=== PATIENT | male | born 1980 | race Caucasian/White ===

== ENCOUNTER 2016-08-28 15:20 | Emergency (ER) | payer BC ==
[~2016-08-28] VITALS: Ht 170.2 cm; Wt 80.0 kg
[~2016-08-28 15:20] MED LIST: IBUP-1542 PO; LIDO700A6 TD; NO MEDS
[2016-08-28 15:39] VITALS: Ht 170.2 cm; Wt 80.0 kg
--- NOTE | 2016-08-28 15:44 | ERA ---
ER Documentation Chief Complaint Date/Time DATE: 08/28/16 TIME: 15:43 Chief Complaint Abdominal pain HPI The patient is a 36-year-old male, presenting to the ER because of epigastric abdominal pain that began about 2:45 PM while he was driving. He thought it might be from hunger pain. He denies similar pain previously, the pain is 10/10 , no aggravating or relieving factor. He denies fever, chills, neck pain, chest pain, dyspnea, vomiting, diarrhea, constipation, dysuria. He does not smoke, drinks socially Past medical history: Gastritis, GERD Past surgical history: None ROS All systems reviewed and are negative except as per history of present illness. Medications Home Meds Active Scripts Hydrocodone/Acetaminophen ([place] 10-325 Tablet) 1 Each Tablet, 1 TAB PO Q6H Y for PAIN, #15 TAB Prov:FERNANDO STANLEY MD 08/28/16 Hydrocodone/Acetaminophen ([place] 10-325 Tablet) 1 Each Tablet, 1 TAB PO Q6H Y for PAIN, #7 TAB Prov:FERNANDO STANLEY MD 08/28/16 Discontinued Reported Medications [No Meds] No Conflict Check 06/21/14 Discontinued Scripts Lidocaine 5%* (Lidoderm 5%*) 5% - Patch Adh..patch, 1 PATCH TD DAILY, #15 PATCH Prov:CUAUHTEMOC ELAM NP 04/15/15 Ibuprofen* (Motrin*) 600 Mg Tab, 600 MG PO Q6H Y for PAIN AND OR ELEVATED TEMP, #30 Prov:CUAUHTEMOC ELAM NP 04/15/15 Allergies Allergies: Coded Allergies: No Known Allergy (Unverified , 08/28/16) PMhx/Soc Hx Alcohol Use: No Hx Substance Use: No Hx Tobacco Use: No Physical Exam Vitals Vital Signs Date Time Temp Pulse Resp B/P Pulse Ox O2 Delivery O2 Flow Rate FiO2 08/28/16 17:37 97.4 71 16 132/66 98 Room Air 08/28/16 15:39 36.6 104 22 148/82 98 Physical Exam Const: No acute distress. Head: Atraumatic. Eyes: Normal Conjunctiva. ENT: Normal External Ears, Nose and Mouth. Neck: Full range of motion. No meningismus. Resp: Clear to auscultation bilaterally. Cardio: Regular rate and rhythm, no murmurs. Abd: Soft, non distended, normal bowel sounds, mild epigastric tenderness. No right lower quadrant, right upper quadrant, CVA, no rigidity, rebound, tenderness Skin: No petechiae or rashes. Back: No midline or flank tenderness. Ext: No cyanosis, or edema. Neur: Awake and alert. No focal deficit Psych: Normal Mood and Affect. Result Diagram: 08/28/16 1550 08/28/16 1550 Results 24 hrs Laboratory Tests Test 08/28/16 15:50 08/28/16 16:57 Alanine Aminotransferase (ALT/SGPT) 57IU/L Albumin 4.5g/dl Albumin/Globulin Ratio 1.25 Alkaline Phosphatase 86IU/L Anion Gap 19 Aspartate Amino Transf (AST/SGOT) 58IU/L Basophils # Pending Basophils % Pending Blood Urea Nitrogen 14mg/dl Calcium Level 9.4mg/dl Carbon Dioxide Level 27mmol/L Chloride Level 101mmol/L Creatinine 0.87mg/dl Direct Bilirubin 0.00mg/dl Eosinophils # Pending Eosinophils % Pending Globulin 3.60g/dl Glucose Level 97mg/dl Hematocrit 47.7% Hemoglobin 16.2g/dl Indirect Bilirubin 0.3mg/dl Lipase 152U/L Lymphocytes # Pending Lymphocytes % Pending Mean Corpuscular Hemoglobin 30.8pg Mean Corpuscular Hemoglobin Concent 33.9g/dl Mean Corpuscular Volume 90.9fl Mean Platelet Volume 10.1fl Monocytes # Pending Monocytes % Pending Neutrophils # Pending Neutrophils % Pending Nucleated Red Blood Cells # Pending Nucleated Red Blood Cells % Pending Platelet Count 91595^3/UL Potassium Level 3.3mmol/L Red Blood Count 5.2510^6/ul Red Cell Distribution Width 12.5% Sodium Level 144mmol/L Total Bilirubin 0.3mg/dl Total Protein 8.1g/dl White Blood Count 9.610^3/ul Bedside Urine Blood Negative Bedside Urine Glucose (UA) Negative Bedside Urine Ketones (LAB) Negative Bedside Urine Leukocyte Esterase (L Negative Bedside Urine Nitrite (LAB) Negative Bedside Urine Protein (LAB) Trace Bedside Urine pH (LAB) 7.5 Current Medications Medications (Trade) Dose Ordered Sig/Sissy Route PRN Reason Start Time Stop Time Status Last Admin Dose Admin Morphine Sulfate (morphine) 4 mg ONCE STAT IV 08/28/16 16:12 08/28/16 16:15 DC 08/28/16 16:52 Ondansetron HCl (Zofran Inj) 4 mg ONCE STAT IV 08/28/16 16:12 08/28/16 16:15 DC 08/28/16 16:20 Pantoprazole (Protonix Iv) 40 mg ONCE ONCE IV 08/28/16 16:30 08/28/16 16:31 DC 08/28/16 16:20 Potassium Chloride (Klor-Con 20) 20 meq ONCE STAT PO 08/28/16 16:49 08/28/16 16:51 DC 08/28/16 17:08 Procedures/MDM EKG: Read by emergency physician Rate/Rhythm: Sinus tachycardia 103 beats per min QRS, ST, T-waves: No ST elevation, no T wave inversion Impression: Abnormal EKG MEDICAL MAKING DECISION: The patient is a 36-year-old male, presenting to the ER because of acute biliary colic, acute hypokalemia. He was treated with morphine 4 mg IV for pain, Zofran 4 mg IV for nausea, Protonix 40 mg IV and potassium 20 mEq p.o. for low potassium with good response. The differential diagnoses considered include but are not limited to cholelithiasis, cholecystitis, cystitis, pancreatitis, hepatitis, gastritis, peptic ulcer disease, gastric ulcer, appendicitis, diverticulitis, cholangitis, choledocholithiasis, partial small bowel obstruction. Departure Diagnosis: Primary Impression: Biliary colic Additional Impression: Hypokalemia Condition: Good Comments He was discharged with [place] and referral to a general surgeon Dr. Epps in 1- 2 days, sooner if needed and return to concern The patient's blood pressure was elevated (>120/80) but appears stable without evidence of hypertension emergency or urgency. The patient was counseled about the risks of hypertension and urged to pursue outpatient monitoring and therapy within a week with their primary care physician. FERNANDO STANLEY MD Aug 28, 2016 15:44
[2016-08-28 16:04] LABS: BASOPHIL # 0.1 10^3/ul (0.0-0.1); BASOPHILS % 0.7 % (0.0-2.0); EOSINOPHILS # 0.1 10^3/ul (0.0-0.5); HEMATOCRIT 47.7 % (42.0-52.0); HEMOGLOBIN 16.2 g/dl (14.0-18.0); LYMPHOCYTES # 5.3 10^3/ul (0.8-2.9); LYMPHOCYTES % 54.9 % (15.0-51.0); MEAN CORPUSCULAR HEMOGLOBIN 30.8 pg (29.0-33.0); MEAN CORPUSCULAR HGB CONC 33.9 g/dl (32.0-37.0); MEAN CORPUSCULAR VOLUME 90.9 fl (82.0-101.0); MEAN PLATELET VOLUME 10.1 fl (7.4-10.4); MONOCYTE # 0.6 10^3/ul (0.3-0.9); MONOCYTES % 5.8 % (0.0-11.0); NEUTROPHIL # 3.6 10^3/ul (1.6-7.5); NEUTROPHILS % 37.6 % (39.0-77.0); PLATELET COUNT 215 10^3/UL (140-440); RED BLOOD COUNT 5.25 10^6/ul (4.70-6.10); RED CELL DISTRIBUTION WIDTH 12.5 % (11.5-14.5); UNCORRECTED WBC 9.6 10^3/ul (4.8-10.8); WHITE BLOOD COUNT 9.6 10^3/ul (4.8-10.8)
[2016-08-28 16:09] LABS: CONDITION 1; LH ANALYZER COMMENTS 1
[2016-08-28] MEDS ORDERED: morphine 4 MG/ML VIAL IV STA (16:12)
[2016-08-28] MEDS ORDERED: ONDANSETRON 4 MG INJ IV STA (16:12)
[2016-08-28 16:13] LABS: ALBUMIN 4.5 g/dl (3.3-4.9)
[2016-08-28 16:14] LABS: POTASSIUM 3.3 mmol/L (3.5-5.1)
[2016-08-28 16:16] LABS: ALBUMIN/GLOBULIN RATIO 1.25; BILIRUBIN,INDIRECT 0.3 mg/dl (0-1.1); BILIRUBIN,TOTAL 0.3 mg/dl (0.2-1.3); CREATININE 0.87 mg/dl (0.61-1.24); TOTAL PROTEIN 8.1 g/dl (6.1-8.1)
[2016-08-28 16:17] LABS: CALCIUM 9.4 mg/dl (8.4-10.2)
[2016-08-28] MEDS ORDERED: PANTOPRAZOLE 40 MG INJ IV ONE (16:30)
--- NOTE | 2016-08-28 16:47 | RADRPT ---
PROCEDURE: US Abdomen. CLINICAL INDICATION: abdominal pain TECHNIQUE: Multiple real-time images were acquired of the patient's right upper quadrant abdomen a nd retroperitoneum utilizing a high resolution transducer. COMPARISON: None FINDINGS: The liver demonstrates mildly increased echogenicity. The liver is normal in size and no focal jeanette d lesions are seen. The liver measures 14.7 cm in length. The portal vein is patent with normal dire ction of flow. No intrahepatic biliary dilatation is seen. Multiple calcified gallstones are identified within the gallbladder. There are echogenic foci in th e gallbladder wall with ring down artifact posteriorly, consistent with adenomyomatosis. There is n o pericholecystic fluid or gallbladder wall thickening. The common bile duct measures 4 mm in sukumar l dimension. The pancreas was not seen due to overlying bowel gas. No free fluid is identified. The right kidney is normal in size, and demonstrate normal echogenicity and cortical thickness. The right kidney measures 12.0 cm in long dimension. There is no evidence of hydronephrosis. There are no kidney stones. RPTAT: AA IMPRESSION: Cholelithiasis with no evidence of gallbladder wall thickening or pericholecystic fluid. Gallbladder adenomyomatosis. Mild fatty infiltration of the liver. .Greyson David MD, MD Date Time Electronically viewed and signed by .Greyson David MD, on 08/28/2016 16:46 .S/
[2016-08-28] MEDS ORDERED: POTASSIUM CHLORIDE (SR) 20 MEQ TAB PO STA (16:49)
[2016-08-28 16:57] LABS: URINE BLOOD (Dip) POC Negative (NEGATIVE)
[2016-08-28] MEDS ORDERED: HYDR-902 PO ×2 (17:10→17:12)
[2016-08-28 17:37] VITALS: BP 132/66; PULSE 71; RESP 16; TEMP 97.4
== END 2016-08-28 17:47 | disposition home or self-care (01) ==
LOC: E/R 15:20
DX: K80.50 Calculus of bile duct without cholangitis or cholecystitis without obstruction (principal); E87.6 Hypokalemia
CPT/HCPCS: 76705; 80053; 81003; 83690; 85025; C9113; J2270; J2405; 36415; 93005; 96374; 96375

== ENCOUNTER → 2016-09-01 | Outpatient (CLI) | payer BC ==
[~2016-09-01] MED LIST changes: +HYDR-902 PO; -IBUP-1542 PO; -LIDO700A6 TD; -NO MEDS
== END | disposition home or self-care (01) ==
LOC: LAB 08:32
PROVIDERS: ATTEND Surgery
DX: K29.70 Gastritis, unspecified, without bleeding (principal); R10.9 Unspecified abdominal pain

== ENCOUNTER 2016-09-15 18:17 | Emergency (ER) | payer BC ==
[~2016-09-15] VITALS: Ht 170.2 cm; Wt 80.0 kg
[2016-09-15 18:24] VITALS: Ht 170.2 cm; Wt 80.0 kg
[2016-09-15] MEDS ORDERED: SOD CHLORIDE 0.9% 500 ML IV STA (18:24)
[2016-09-15] MEDS ORDERED: morphine 4 MG/ML VIAL IV STA (18:24)
[2016-09-15] MEDS ORDERED: ONDANSETRON 4 MG INJ IV STA (18:24)
[2016-09-15 18:59] LABS: BASOPHILS % 0.6 % (0.0-2.0); EOSINOPHILS # 0.2 10^3/ul (0.0-0.5); EOSINOPHILS % 2.1 % (0.0-7.0); HEMATOCRIT 47.5 % (42.0-52.0); HEMOGLOBIN 16.6 g/dl (14.0-18.0); LYMPHOCYTES # 3.7 10^3/ul (0.8-2.9); MEAN CORPUSCULAR HEMOGLOBIN 31.2 pg (29.0-33.0); MEAN CORPUSCULAR HGB CONC 34.9 g/dl (32.0-37.0); MEAN CORPUSCULAR VOLUME 89.5 fl (82.0-101.0); MONOCYTE # 0.6 10^3/ul (0.3-0.9); MONOCYTES % 6.8 % (0.0-11.0); NEUTROPHIL # 3.6 10^3/ul (1.6-7.5); NEUTROPHILS % 44.5 % (39.0-77.0); PLATELET COUNT 191 10^3/UL (140-440); RED BLOOD COUNT 5.31 10^6/ul (4.70-6.10); UNCORRECTED WBC 8.1 10^3/ul (4.8-10.8); WHITE BLOOD COUNT 8.1 10^3/ul (4.8-10.8)
[2016-09-15 19:01] LABS: CONDITION 1
[2016-09-15 19:11] LABS: ALBUMIN 4.3 g/dl (3.3-4.9)
[2016-09-15 19:14] LABS: ALBUMIN/GLOBULIN RATIO 1.3; BILIRUBIN,INDIRECT 0.5 mg/dl (0-1.1); BILIRUBIN,TOTAL 0.5 mg/dl (0.2-1.3); CREATININE 0.99 mg/dl (0.61-1.24); TOTAL PROTEIN 7.6 g/dl (6.1-8.1)
[2016-09-15 19:15] LABS: CALCIUM 9.5 mg/dl (8.4-10.2)
[2016-09-15] MEDS ORDERED: DICLOFENAC SODIUM 37.5 MG/ML VIAL IV STA (19:27)
[2016-09-15] MEDS ORDERED: HYDROmorphONE 1 MG/ML SYG IV STA (19:27)
[2016-09-15 19:58] LABS: URINE BLOOD (Dip) POC Negative (NEGATIVE)
--- NOTE | 2016-09-15 20:33 | RADRPT ---
PROCEDURE: US Abdomen. CLINICAL INDICATION: epigatric pain, stones TECHNIQUE: Multiple real-time images were acquired of the patient's abdomen and retroperitoneum ut ilizing a high resolution transducer. COMPARISON: 08/28/2016 FINDINGS: The liver demonstrates normal echogenicity and size and no focal lesions are seen. The liver measure s 14.4 cm in length. There are gallstones in the gallbladder. There is comet-tail artifact consisten t with adenomyomatosis. There is no gallbladder wall thickening or pericholecystic fluid. No intra o r extrahepatic biliary dilatation is seen. The common bile duct measures 4 mm in maximal dimension. The visualized portions of the pancreas are unremarkable. No free fluid is identified. The right kidney measures 11.1 cm in long dimension. There is no right hydronephrosis or visualized renal calculi. IMPRESSION: 1. Gallstones in the gallbladder. No gallbladder wall thickening or pericholecystic fluid. Gallbla dder adenomyomatosis. 2. No biliary dilatation or right hydronephrosis. RPTAT: HBST .Arnaldo Mcgee MD, MD Date Time Electronically viewed and signed by .Arnaldo Mcgee MD, on 09/15/2016 20:32 .T/
[2016-09-15 20:34] LABS: ADD UMIC NO; URINE BILIRUBIN (Dip) NEGATIVE (NEGATIVE); URINE BLOOD (Dip) NEGATIVE (NEGATIVE); URINE COLOR LT. YELLOW (YELLOW); URINE GLUCOSE (Dip) NEGATIVE (NEGATIVE); URINE KETONES (Dip) NEGATIVE (NEGATIVE); URINE LEUKOCYTE ESTERASE (Dip) NEGATIVE (NEGATIVE); URINE NITRITE (Dip) NEGATIVE (NEGATIVE); URINE TOTAL PROTEIN (Dip) NEGATIVE (NEGATIVE); URINE UROBILINOGEN (Dip) 0.2 E.U./dL (0.1-1.0)
--- NOTE | 2016-09-15 21:29 | ERD ---
ER Documentation Chief Complaint Date/Time DATE: 09/15/16 TIME: 21:25 Chief Complaint RUQ AP SINCE TODAY HPI This 36-year-old male presents for right upper quadrant pain that began today. He has a history of gallstones. He prevented further surgery but the surgeon wanted to make sure that he did not have H pylori causing the pain. Pain is epigastric and very significant. He denies vomiting. He has no fevers and chills. ROS All systems reviewed and are negative except as per history of present illness. Medications Home Meds Active Scripts Hydrocodone/Acetaminophen ([place] 10-325 Tablet) 1 Each Tablet, 1 TAB PO Q6H Y for PAIN, #15 TAB Prov:FERNANDO STANLEY MD 08/28/16 Hydrocodone/Acetaminophen ([place] 10-325 Tablet) 1 Each Tablet, 1 TAB PO Q6H Y for PAIN, #7 TAB Prov:FERNANDO STANLEY MD 08/28/16 Allergies Allergies: Coded Allergies: No Known Allergy (Unverified , 08/28/16) PMhx/Soc History of Surgery: No Anesthesia Reaction: No Hx Neurological Disorder: No Hx Respiratory Disorders: No Hx Cardiac Disorders: No Hx Psychiatric Problems: No Hx Miscellaneous Medical Probl: Yes (purvi ) Hx Alcohol Use: No Hx Substance Use: No Hx Tobacco Use: No Smoking Status: Never smoker Physical Exam Vitals Vital Signs Date Time Temp Pulse Resp B/P Pulse Ox O2 Delivery O2 Flow Rate FiO2 09/15/16 18:24 98.3 78 18 150/92 98 Physical Exam Const: [] Head: Atraumatic Eyes: Normal Conjunctiva ENT: Normal External Ears, Nose and Mouth. Neck: Full range of motion..~ No meningismus. Resp: Clear to auscultation bilaterally Cardio: Regular rate and rhythm, no murmurs Abd: Soft, non tender, non distended. Normal bowel sounds Skin: No petechiae or rashes Back: No midline or flank tenderness Ext: No cyanosis, or edema Neur: Awake and alert Psych: Normal Mood and Affect Result Diagram: 09/15/16183409/15/161834 Results 24 hrs Laboratory Tests Test 09/15/16 18:35 09/15/16 19:58 09/15/16 20:10 Alanine Aminotransferase (ALT/SGPT) 110IU/L Albumin 4.3g/dl Albumin/Globulin Ratio 1.30 Alkaline Phosphatase 84IU/L Anion Gap 16 Aspartate Amino Transf (AST/SGOT) 125IU/L Basophils # 0.010^3/ul Basophils % 0.6% Blood Urea Nitrogen 18mg/dl Calcium Level 9.5mg/dl Carbon Dioxide Level 31mmol/L Chloride Level 101mmol/L Creatinine 0.99mg/dl Direct Bilirubin 0.00mg/dl Eosinophils # 0.210^3/ul Eosinophils % 2.1% Globulin 3.30g/dl Glucose Level 105mg/dl Hematocrit 47.5% Hemoglobin 16.6g/dl Indirect Bilirubin 0.5mg/dl Lipase 519U/L Lymphocytes # 3.710^3/ul Lymphocytes % 46.0% Mean Corpuscular Hemoglobin 31.2pg Mean Corpuscular Hemoglobin Concent 34.9g/dl Mean Corpuscular Volume 89.5fl Mean Platelet Volume 10.0fl Monocytes # 0.610^3/ul Monocytes % 6.8% Neutrophils # 3.610^3/ul Neutrophils % 44.5% Nucleated Red Blood Cells # 0.010^3/ul Nucleated Red Blood Cells % 0.0/100WBC Platelet Count 47227^3/UL Potassium Level 4.0mmol/L Red Blood Count 5.3110^6/ul Red Cell Distribution Width 13.0% Sodium Level 144mmol/L Total Bilirubin 0.5mg/dl Total Protein 7.6g/dl White Blood Count 8.110^3/ul Bedside Urine Blood Negative Bedside Urine Glucose (UA) Negative Bedside Urine Ketones (LAB) Negative Bedside Urine Leukocyte Esterase (L Negative Bedside Urine Nitrite (LAB) Negative Bedside Urine Protein (LAB) Trace Bedside Urine pH (LAB) 7.0 Urine Bilirubin NEGATIVE Urine Clarity CLEAR Urine Color LT. YELLOW Urine Glucose NEGATIVE% Urine Hemoglobin NEGATIVE Urine Ketones NEGATIVE Urine Leukocyte Esterase NEGATIVE Urine Nitrite NEGATIVE Urine Specific [place] 1.020 Urine Total Protein NEGATIVE Urine Urobilinogen 0.2 E.U./dL Urine pH 6.5 Current Medications Medications (Trade) Dose Ordered Sig/Sissy Route PRN Reason Start Time Stop Time Status Last Admin Dose Admin Sodium Chloride (NS) 500 ml @ 500 mls/hr Q1H STAT IV 09/15/16 18:24 09/15/16 19:23 DC 09/15/16 18:38 Morphine Sulfate (morphine) 4 mg ONCE STAT IV 09/15/16 18:24 09/15/16 18:25 DC 09/15/16 18:38 Ondansetron HCl (Zofran Inj) 4 mg ONCE STAT IV 09/15/16 18:24 09/15/16 18:25 DC 09/15/16 18:38 Diclofenac Sodium (Dyloject) 37.5 mg ONCE STAT IV 09/15/16 19:27 09/15/16 19:29 DC 09/15/16 19:58 Hydromorphone HCl (Dilaudid) 1 mg ONCE STAT IV 09/15/16 19:27 09/15/16 19:29 DC 09/15/16 19:58 Procedures/MDM Biliary colic with mildly elevated liver enzymes mildly elevated lipase. He is already had 3 year file and get anymore pain was relieved the emergency room with morphine Dilaudid and I will inject. He is also given Zofran. Was given a liter of IV fluids. Patient is comfortable going home now. Going to discharge him with [place], naproxen, Zofran and urgent surgical referral. Patient already has established surgeon will call first thing on Sunday. I gave him return precautions in the hospital for any acute changes. Vital signs are stable. Ultrasound interpretation: Multiple gallstones without evidence support. Cholecystitis, no persistent colic fluid, no dilated duct, no wall thickening. Departure Diagnosis: Primary Impression: Biliary colic Additional Impressions: Transaminitis Elevated lipase ROSA ISELA KAPLAN DO Sep 15, 2016 21:29
[2016-09-15] MEDS ORDERED: ONDA4TAB11 PO (21:30)
[2016-09-15] MEDS ORDERED: OXYC-279 PO (21:30)
[2016-09-15] MEDS ORDERED: NAPR-688 PO (21:30)
[2016-09-15 22:05] VITALS: BP 147/80; PULSE 64; RESP 20; TEMP 97.8
== END 2016-09-15 22:06 | disposition home or self-care (01) ==
LOC: FTE 18:17
DX: K80.50 Calculus of bile duct without cholangitis or cholecystitis without obstruction (principal); R74.0 Nonspecific elevation of levels of transaminase and lactic acid dehydrogenase [LDH]; R74.8 Abnormal levels of other serum enzymes
CPT/HCPCS: 36415; 76705; 80053; 81003; 83690; 85025; 96374; 96375; 99285; J1170; J2270; J2405; J7040

== ENCOUNTER → 2016-10-05 | Outpatient (CLI) | payer BC ==
[~2016-10-05] MED LIST changes: +NAPR-688 PO; +ONDA4TAB11 PO; +OXYC-279 PO
[2016-10-05 09:36] LABS: BASOPHILS % 0.9 % (0.0-2.0); EOSINOPHILS # 0.1 10^3/ul (0.0-0.5); EOSINOPHILS % 2.2 % (0.0-7.0); HEMATOCRIT 47.2 % (42.0-52.0); HEMOGLOBIN 16.1 g/dl (14.0-18.0); LYMPHOCYTES # 2.3 10^3/ul (0.8-2.9); MEAN CORPUSCULAR HEMOGLOBIN 31.1 pg (29.0-33.0); MEAN CORPUSCULAR HGB CONC 34.1 g/dl (32.0-37.0); MEAN CORPUSCULAR VOLUME 91.3 fl (82.0-101.0); MEAN PLATELET VOLUME 9.6 fl (7.4-10.4); MONOCYTE # 0.4 10^3/ul (0.3-0.9); NEUTROPHIL # 2.3 10^3/ul (1.6-7.5); NEUTROPHILS % 44.9 % (39.0-77.0); PLATELET COUNT 177 10^3/UL (140-440); RED BLOOD COUNT 5.17 10^6/ul (4.70-6.10); RED CELL DISTRIBUTION WIDTH 12.9 % (11.5-14.5)
[2016-10-05 09:37] LABS: CONDITION 1
[2016-10-05 09:44] LABS: ALBUMIN 4.3 g/dl (3.3-4.9)
[2016-10-05 09:45] LABS: POTASSIUM 4.4 mmol/L (3.5-5.1)
[2016-10-05 09:47] LABS: ALBUMIN/GLOBULIN RATIO 1.38; BILIRUBIN,INDIRECT 0.6 mg/dl (0-1.1); BILIRUBIN,TOTAL 0.6 mg/dl (0.2-1.3); CREATININE 0.87 mg/dl (0.61-1.24); TOTAL PROTEIN 7.4 g/dl (6.1-8.1)
[2016-10-05 09:48] LABS: CALCIUM 9.1 mg/dl (8.4-10.2); CHOL/HDL RATIO 3.5 RATIO; MAGNESIUM 1.8 mg/dl (1.7-2.5)
[2016-10-05 10:21] LABS: THYROID STIMULATING HORMONE 1.45 MIU/L (0.465-4.680)
== END | disposition home or self-care (01) ==
LOC: LAB 09:04 → EDSTATUS 10-06 10:27
PROVIDERS: ATTEND Internal Medicine
DX: E78.5 Hyperlipidemia, unspecified (principal); E55.9 Vitamin D deficiency, unspecified; E03.9 Hypothyroidism, unspecified
CPT/HCPCS: 80053; 80061; 82306; 83735; 84436; 84443; 85025

== ENCOUNTER 2016-11-22 06:35 | Emergency (ER) | payer BC ==
[~2016-11-22] VITALS: Ht 170.2 cm; Wt 78.0 kg
[2016-11-22 06:42] VITALS: Ht 170.2 cm; Wt 78.0 kg
--- NOTE | 2016-11-22 06:52 | ERD ---
ER Documentation Chief Complaint Date/Time DATE: 11/22/16 TIME: 06:47 Chief Complaint ap hx cholelithiasis HPI 36-year-old male with history of hyperlipidemia, gastritis and cholelithiasis ambulatory to the ED complaining of a one-day history of increasing, crampy, nonradiating right upper quadrant pain. Nausea but no vomiting, diarrhea or constipation. No relieving or exacerbating factors. Denies dysuria, polyuria, hematuria or flank pain. No chest pain or palpitations. No shortness of breath or cough. No skin rash. No fevers or chills ROS All systems reviewed and are negative except as per history of present illness. Medications Home Meds Active Scripts Naproxen* (Naproxen*) 500 Mg Tablet, 500 MG PO BID, #20 TAB Prov:ROSA ISELA KAPLAN DO 09/15/16 Ondansetron (Zofran Odt) 4 Mg Tab.rapdis, 4 MG PO Q6, #20 Prov:ROSA ISELA KAPLAN DO 09/15/16 Oxycodone HCl/Acetaminophen ([place] 5-325 mg Tablet) 1 Each Tablet, 1 EACH PO Q6, #24 TAB Prov:ROSA ISELA KAPLAN DO 09/15/16 Hydrocodone/Acetaminophen ([place] 10-325 Tablet) 1 Each Tablet, 1 TAB PO Q6H Y for PAIN, #15 TAB Prov:FERNANDO STANLEY MD 08/28/16 Hydrocodone/Acetaminophen ([place] 10-325 Tablet) 1 Each Tablet, 1 TAB PO Q6H Y for PAIN, #7 TAB Prov:FERNANDO STANLEY MD 08/28/16 Allergies Allergies: Coded Allergies: No Known Allergy (Unverified , 08/28/16) PMhx/Soc Reviewed in chart. As per HPI. History of Surgery: No Anesthesia Reaction: No Hx Neurological Disorder: No Hx Respiratory Disorders: No Hx Cardiac Disorders: No Hx Psychiatric Problems: No Hx Miscellaneous Medical Probl: Yes (cholelithiasis. Dextroscoliosis, thoracic disc disease) Hx Alcohol Use: No Hx Substance Use: No Hx Tobacco Use: No Smoking Status: Former smoker FmHx Mother: Hypertension and gallbladder disease. No heart disease, stroke or cancer. Physical Exam Vitals Vital Signs Date Time Temp Pulse Resp B/P Pulse Ox O2 Delivery O2 Flow Rate FiO2 11/22/16 06:42 98.6 68 14 136/88 98 Physical Exam Const: Alert, no acute distress Head: Atraumatic Eyes: Normal Conjunctiva ENT: Normal External Ears, Nose and Mouth. Neck: Full range of motion nontender. Resp: Clear to auscultation bilaterally Cardio: Regular rate and rhythm, no murmurs Abd: Soft, mild upper quadrant tenderness, non distended. Normal bowel sounds. No rebound or guarding. No masses or abnormal pulsations. Skin: No petechiae or rashes Back: No midline or flank tenderness Ext: No cyanosis, or edema Neur: Awake and alert, no focal deficit observed. Psych: Normal Mood and Affect Result Diagram: 11/22/1650 11/22/1650 Results 24 hrs Laboratory Tests Test 11/22/16 06:50 White Blood Count 6.610^3/ul Red Blood Count 5.2410^6/ul Hemoglobin 16.3g/dl Hematocrit 47.1% Mean Corpuscular Volume 89.9fl Mean Corpuscular Hemoglobin 31.1pg Mean Corpuscular Hemoglobin Concent 34.6g/dl Red Cell Distribution Width 11.9% Platelet Count 01972^3/UL Mean Platelet Volume 11.7fl Neutrophils % 45.2% Lymphocytes % 43.4% Monocytes % 7.0% Eosinophils % 3.3% Basophils % 0.9% Nucleated Red Blood Cells % 0.0/100WBC Neutrophils # 3.010^3/ul Lymphocytes # 2.910^3/ul Monocytes # 0.510^3/ul Eosinophils # 0.210^3/ul Basophils # 0.110^3/ul Nucleated Red Blood Cells # 0.010^3/ul Sodium Level 140mmol/L Potassium Level 4.1mmol/L Chloride Level 107mmol/L Carbon Dioxide Level 25mmol/L Anion Gap 12 Blood Urea Nitrogen 14mg/dl Creatinine 0.87mg/dl Glucose Level 92mg/dl Calcium Level 8.9mg/dl Total Bilirubin 0.5mg/dl Direct Bilirubin 0.00mg/dl Indirect Bilirubin 0.5mg/dl Aspartate Amino Transf (AST/SGOT) 37IU/L Alanine Aminotransferase (ALT/SGPT) 73IU/L Alkaline Phosphatase 86IU/L Total Protein 7.6g/dl Albumin 4.3g/dl Globulin 3.30g/dl Albumin/Globulin Ratio 1.30 Lipase 96U/L IMAGING: PROCEDURE: US Abdomen (right upper quadrant). CLINICAL INDICATION: Abdominal pain. TECHNIQUE: Multiple real-time longitudinal and transverse images of the right upper quadrant of the abdomen were acquired utilizing a curved array transducer. Images were reviewed on a high-resolution PACS workstation. COMPARISON: 09/15/2016 FINDINGS: The liver is normal in size and echotexture without focal mass or intrahepatic biliary dilatation. There is normal hepatopedal flow within the main portal vein. The gallbladder is well displayed and demonstrates multiple echogenic, shadowing calculi. There is comet-tail artifact consistent with adenomyomatosis. The common bile duct measures 4.0 mm in maximal dimension. The pancreas is poorly visualized and obscured by overlying bowel gas. No free fluid is identified. The right kidney measures 12.3 cm in length. There is normal echogenicity within the right kidney. There is no perinephric fluid collection. No hydronephrosis, mass, or calculus is seen. IMPRESSION: 1. Cholelithiasis without evidence of gallbladder wall thickening, pericholecystic fluid or biliary tree dilatation. 2. Gallbladder adenomyomatosis. RPTAT: AACC Physician Iman Date Time Electronically viewed and signed by Physician Iman on 11/22/2016 07: 29 JH/ Procedures/MDM DOCUMENTS REVIEWED: ED nurse, prior ED MEDICAL DECISION MAKIN-year-old male with history of hyperlipidemia, gastritis and cholelithiasis ambulatory to the ED complaining of a one-day history of increasing, crampy, nonradiating right upper quadrant pain. Refused analgesics as pain is improving. Presentation consistent with cholelithiasis and biliary colic. No ultrasound evidence of cholecystitis, biliary obstruction or cholangitis. Pain resolved. No evidence of ureterolithiasis or renal colic. No skin changes or signs of herpes zoster. Stable for discharge with appropriate analgesics and outpatient follow-up with surgery as counseled.. Counseled patient regarding diagnosis, diagnostic results and plan for discharge Departure Diagnosis: Primary Impression: Acute abdominal pain in right upper quadrant Additional Impressions: Cholelithiasis Cholelithiasis location: gallbladder Cholecystitis presence: without cholecystitis Biliary obstruction: without biliary obstruction Qualified Code : K80.20 - Calculus of gallbladder without cholecystitis without obstruction Biliary colic Condition: Stable Patient Instructions: Coping with Colic, Gallstones ROSEMARY KRAUSE MD Nov 22, 2016 06:52
[2016-11-22 07:05] LABS: ADD SCAN DIFF NO
[2016-11-22 07:07] LABS: BASOPHIL # 0.1 10^3/ul (0.0-0.1); BASOPHILS % 0.9 % (0.0-2.0); EOSINOPHILS # 0.2 10^3/ul (0.0-0.5); EOSINOPHILS % 3.3 % (0.0-7.0); HEMATOCRIT 47.1 % (42.0-52.0); HEMOGLOBIN 16.3 g/dl (14.0-18.0); LYMPHOCYTES # 2.9 10^3/ul (0.8-2.9); LYMPHOCYTES % 43.4 % (15.0-51.0); MEAN CORPUSCULAR HEMOGLOBIN 31.1 pg (29.0-33.0); MEAN CORPUSCULAR HGB CONC 34.6 g/dl (32.0-37.0); MEAN CORPUSCULAR VOLUME 89.9 fl (82.0-101.0); MEAN PLATELET VOLUME 11.7 fl (7.4-10.4); MONOCYTE # 0.5 10^3/ul (0.3-0.9); NEUTROPHILS % 45.2 % (39.0-77.0); PLATELET COUNT 208 10^3/UL (140-415); RED BLOOD COUNT 5.24 10^6/ul (4.70-6.10); RED CELL DISTRIBUTION WIDTH 11.9 % (11.5-14.5); WHITE BLOOD COUNT 6.6 10^3/ul (4.8-10.8)
[2016-11-22 07:15] LABS: ALBUMIN 4.3 g/dl (3.3-4.9)
[2016-11-22 07:16] LABS: POTASSIUM 4.1 mmol/L (3.5-5.1)
[2016-11-22 07:18] LABS: CREATININE 0.87 mg/dl (0.61-1.24)
[2016-11-22 07:19] LABS: ALBUMIN/GLOBULIN RATIO 1.3; BILIRUBIN,INDIRECT 0.5 mg/dl (0-1.1); BILIRUBIN,TOTAL 0.5 mg/dl (0.2-1.3); CALCIUM 8.9 mg/dl (8.4-10.2); TOTAL PROTEIN 7.6 g/dl (6.1-8.1)
--- NOTE | 2016-11-22 07:29 | RADRPT ---
PROCEDURE: US Abdomen (right upper quadrant). CLINICAL INDICATION: Abdominal pain. TECHNIQUE: Multiple real-time longitudinal and transverse images of the right upper quadrant of th e abdomen were acquired utilizing a curved array transducer. Images were reviewed on a high-resoluti on PACS workstation. COMPARISON: 09/15/2016 FINDINGS: The liver is normal in size and echotexture without focal mass or intrahepatic biliary dilatation. There is normal hepatopedal flow within the main portal vein. The gallbladder is well displayed and demonstrates multiple echogenic, shadowing calculi. There is comet-tail artifact consistent with a denomyomatosis. The common bile duct measures 4.0 mm in maximal dimension. The pancreas is poorly visualized and obscured by overlying bowel gas. No free fluid is identified. The right kidney measures 12.3 cm in length. There is normal echogenicity within the right kidney. There is no perinephric fluid collection. No hydronephrosis, mass, or calculus is seen. IMPRESSION: 1. Cholelithiasis without evidence of gallbladder wall thickening, pericholecystic fluid or biliary tree dilatation. 2. Gallbladder adenomyomatosis. RPTAT: AACC Physician Iman Date Time Electronically viewed and signed by Physician Iman on 11/22/2016 07:29 /
[2016-11-22] MEDS ORDERED: TRAM50TA2 PO (08:22)
[2016-11-22 09:19] VITALS: BP 135/76; PULSE 72; RESP 21
== END 2016-11-22 09:37 | disposition home or self-care (01) ==
LOC: E/R 06:35
DX: R10.11 Right upper quadrant pain (principal); K80.20 Calculus of gallbladder without cholecystitis without obstruction; K80.50 Calculus of bile duct without cholangitis or cholecystitis without obstruction; Z87.891 Personal history of nicotine dependence
CPT/HCPCS: 36415; 76705; 80053; 83690; 85025

== ENCOUNTER → 2017-03-06 | Outpatient (CLI) | payer BC ==
[~2017-03-06] MED LIST changes: +TRAM50TA2 PO
[2017-03-06 10:31] LABS: ADD SCAN DIFF NO
[2017-03-06 10:35] LABS: ADD UMIC NO; UR ASCORBIC ACID NEGATIVE (NEGATIVE); UR BILIRUBIN (Dip) NEGATIVE (NEGATIVE); UR BLOOD (Dip) NEGATIVE (NEGATIVE); UR CLARITY CLEAR (CLEAR); UR COLOR YELLOW (YELLOW); UR GLUCOSE (Dip) NEGATIVE (NEGATIVE); UR KETONES (Dip) NEGATIVE (NEGATIVE); UR LEUKOCYTE ESTERASE (Dip) NEGATIVE Leu/ul (NEGATIVE); UR NITRITE (Dip) NEGATIVE (NEGATIVE); UR SPECIFIC GRAVITY (Dip) 1.028 (1.003-1.030); UR TOTAL PROTEIN (Dip) NEGATIVE (NEGATIVE); UR UROBILINOGEN (Dip) NEGATIVE (NEGATIVE)
[2017-03-06 10:42] LABS: BASOPHIL # 0.1 10^3/ul (0.0-0.1); BASOPHILS % 0.9 % (0.0-2.0); EOSINOPHILS # 0.1 10^3/ul (0.0-0.5); EOSINOPHILS % 1.3 % (0.0-7.0); HEMATOCRIT 45.9 % (42.0-52.0); HEMOGLOBIN 15.8 g/dl (14.0-18.0); LYMPHOCYTES # 2.1 10^3/ul (0.8-2.9); MEAN CORPUSCULAR HEMOGLOBIN 30.8 pg (29.0-33.0); MEAN CORPUSCULAR HGB CONC 34.4 g/dl (32.0-37.0); MEAN CORPUSCULAR VOLUME 89.5 fl (82.0-101.0); MEAN PLATELET VOLUME 11.4 fl (7.4-10.4); MONOCYTE # 0.4 10^3/ul (0.3-0.9); MONOCYTES % 6.8 % (0.0-11.0); NEUTROPHIL # 2.7 10^3/ul (1.6-7.5); NEUTROPHILS % 50.8 % (39.0-77.0); PLATELET COUNT 194 10^3/UL (140-415); RED BLOOD COUNT 5.13 10^6/ul (4.70-6.10); RED CELL DISTRIBUTION WIDTH 11.9 % (11.5-14.5); WHITE BLOOD COUNT 5.3 10^3/ul (4.8-10.8)
[2017-03-06 11:03] LABS: ALBUMIN 4.2 g/dl (3.3-4.9); ALBUMIN/GLOBULIN RATIO 1.27; BILIRUBIN,INDIRECT 0.6 mg/dl (0-1.1); BILIRUBIN,TOTAL 0.6 mg/dl (0.2-1.3); CALCIUM 9.4 mg/dl (8.4-10.2); CREATININE 0.74 mg/dl (0.61-1.24); MAGNESIUM 1.8 mg/dl (1.7-2.5); POTASSIUM 3.7 mmol/L (3.5-5.1); TOTAL PROTEIN 7.5 g/dl (6.1-8.1)
[2017-03-06 11:05] LABS: INR 0.91; PROTIME 12.3 Sec (12.2-14.2)
[2017-03-06 11:21] LABS: PARTIAL THROMBOPLASTIN TIME 27.1 Sec (25.0-35.0)
--- NOTE | 2017-03-06 17:37 | RADRPT ---
Vent Rate: 76 bpm RR Interval: 0 msec CA Interval: 148 msec QRS Duration: 92 msec QT Interval: 394 msec QTC Interval: 443 msec P-R-T [place]: 59 - 66 - 54 degrees Normal sinus rhythm Normal ECG Electronically Signed By: Dimitri Maurice [id number]
--- NOTE | 2017-03-06 17:51 | RADRPT ---
PROCEDURE: XR Chest. CLINICAL INDICATION: Cough. Bronchitis. TECHNIQUE: Two views. Frontal and lateral. COMPARISON: 04/15/2015. FINDINGS: The lungs are clear. The heart size is normal. There is no pleural effusion. There is no pneumothorax. IMPRESSION: 1. Normal chest radiograph. 2. No change from 04/15/2015. RPTAT: QQ .Ranjit Healy MD, MD Date Time Electronically viewed and signed by .Ranjit Healy MD, on 03/06/2017 17:50 .R/
== END | disposition home or self-care (01) ==
LOC: EKG 08:25
PROVIDERS: ATTEND Internal Medicine
DX: R07.89 Other chest pain (principal)
CPT/HCPCS: 71020; 80053; 81003; 82306; 83690; 83735; 85025; 85610; 85730; 93005

== ENCOUNTER 2017-03-09 13:47 | Observation (INO) | payer BC ==
[2017-03-09] VITALS (16 sets, daily range): BP systolic 116–139; BP diastolic 56–91; PULSE 66–104; RESP 17–20; Ht 170.2 cm; Wt 80.4 kg
[~2017-03-09] VITALS: Ht 170.2 cm; Wt 80.4 kg
--- NOTE | 2017-03-09 08:33 | HP ---
DATE OF ADMISSION: 03/09/2017 HISTORY OF PRESENT ILLNESS: The patient is a 36-year-old gentleman who is well known to me, who presents with current abdominal pains and had been found to have cholelithiasis, and this patient is being admitted on an elective basis for the same. REVIEW OF SYSTEMS: HEENT: Head no history of headache, focal weakness or numbness. EYES: No blurry vision or glaucoma. The patient does wear corrective lenses since childhood. ENT: Noncontributory. NECK: No history of thyroid disease. CHEST: No bronchitis or asthma. HEART: No PND or orthopnea. No palpitations. GASTROINTESTINAL: No constipation, diarrhea or change of bowel habits. History of fatty liver. GENITOURINARY: No dysuria, hematuria, or kidney stones. MUSCULOSKELETAL: History of herniated disc, thoracic T6-7. Status post prior history of epidural blocks. Sleep normal, no history obstructive sleep apnea. The patient has history of scoliosis. SKIN: No history of skin lesions. FAMILY HISTORY: Negative for colon or breast cancer. Mother has hypertension. PHYSICAL EXAMINATION: GENERAL APPEARANCE: The patient is a very pleasant gentleman in no acute distress. VITAL SIGNS: Blood pressure 130/80, respiratory 20 per minute, afebrile. Head normocephalic. No pallor, cyanosis or icterus. Tongue is moist. NECK: Supple. No thyromegaly, bruits, lymphadenopathy. CHEST: Clinically clear. HEART: S1, S2 heard, with no definite gallops. ABDOMEN: Soft, nontender. No hepatosplenomegaly. EXTREMITIES: No edema. Pedal pulse 2+ bilaterally. Homans' sign is negative. NEUROLOGIC: No localizing or lateralizing signs. RECTAL: Rectal is deferred at patient's request. LABORATORY DATA: WBC count 5.3, hematocrit 45.9, platelet 194,000. Sodium 144, potassium 3.7, random glucose 129, BUN 19, creatinine 0.74. PT/INR 0.91. UA shows negative for glucose or protein. IMAGING: Chest x-ray to be reviewed. EKG: To be reviewed. IMPRESSION: 1. Symptomatic cholelithiasis. 2. Mild umbilical hernia. PLAN: The patient's overall medical condition is stable for proposed surgeries by Dr. Epps. Dictated By: Forrest Snider MD /tae/halina /Document#: [id number]
[~2017-03-09 13:47] MED LIST changes: +CEFAZOLIN 2 GM/50 ML (PMX) 50 ML IVPB ONE; +metroNIDAZOLE 500 MG/NS (PMX) 100 ML IVPB ONE
[2017-03-09] MEDS ORDERED: BUPIVACAINE 0.25%/EPI (SDV) 30 ML INJ ONE (16:07)
[2017-03-09] MEDS ORDERED: LIDOCAINE 1% (MPF) 30 ML INJ ONE (16:07)
[2017-03-09] MEDS ORDERED: MEPERIDINE 100 MG INJ ONE (16:08)
[2017-03-09] MEDS ORDERED: PROPOFOL 20 ML ONE (16:08)
[2017-03-09] MEDS ORDERED: SUCCINYLCHOLINE CHLORIDE 100 MG/5 ML SYG IV ONE (16:08)
[2017-03-09] MEDS ORDERED: ROCURONIUM 50 MG INJ ONE ×2 (16:08→17:14)
[2017-03-09] MEDS ORDERED: GLYCOPYRROLATE 1 MG INJ ONE (16:08)
[2017-03-09] MEDS ORDERED: NEOSTIGMINE 3 MG/3 ML SYRINGE ONE ×2 (16:08→17:14)
[2017-03-09] MEDS ORDERED: LIDOCAINE 2% (SDV) 5 ML INJ ONE (16:08)
[2017-03-09] MEDS ORDERED: CEFAZOLIN 1 GM INJ ONE (16:11)
[2017-03-09] MEDS ORDERED: metroNIDAZOLE 500 MG/NS (PMX) 100 ML IVPB ONE (16:47)
[2017-03-09] MEDS ORDERED: IOHEXOL 300MG/ML 30 ML BTL ONE (17:10)
[2017-03-09] MEDS ORDERED: ONDANSETRON 4 MG INJ ONE (17:14)
[2017-03-09] MEDS: LACTATED RINGER'S 1,000 ML IV SCH (18:09)
--- NOTE | 2017-03-09 18:17 | OPR ---
Date/Time of Note Date/Time of Note DATE: 03/09/17 TIME: 18:12 Operative Report Procedure Date: Mar 09, 2017 Procedure Description Preoperative Diagnosis: Symptomatic cholelithiasis BMI 28 Postoperative Diagnosis: Symptomatic cholelithiasis Abnormal liver color BMI 28 Slightly dilated cystic duct Small ventral umbilical hernia Inguinal hernias Operation(s) Performed: 1. 3 port laparoscopic cholecystectomy 2. Laparoscopic liver wedge resection biopsy 3. Laparoscopic intraoperative cholangiogram 4. Ventral umbilical herniorrhaphy repair 5. Local anesthetic injection, [address] Surgeon: TASHI DONALD MD Head Of Sales Promotion: Lena Alvarenga NP Anesthesia: general, local, & regional Anesthesiologist: Royce Vale MD Estimated Blood Loss: 0 - 10 ml's Specimens: Liver Gallbladder Tubes/Drains: None Complications: None Pt Condition Post Procedure: stable Disposition: PACU Indications: 36-year-old male with gallstones and abdominal pain here for cholecystectomy. Risks include but are not limited to bleeding, infection, abscess, seroma, damage to intestines, damage to the liver, damage to biliary tree, hernia formation, chronic pain, biloma, need for reoperations or further surgeries, [place] , stroke, PE, DVT, pneumonia, organ failures, or even . Procedure Description: Patient was brought and placed supine on the operating table SCDs were placed, preoperative antibiotics were administered, all pressure points were well-padded , and after induction of anesthesia patient was prepped and draped in usual sterile fashion and timeout was performed. Incision was made in the supraumbilical region, Veress was safely inserted, and after a negative SIP test , abdomen was insufflated to 15mmHg. Veress was removed and 5mm port was safely inserted. Laparoscopy was performed with a 5 mm 30 scope. Small umbilical hernia was identified. No injuries were identified. The liver looks somewhat abnormal color. Gallbladder is without evidence of infection. 12 mm port is placed in subxiphoid under direct visualization followed by another 5 mm port in the right upper quadrant. All port sites were injected with quarter percent Marcaine with epi and 1% lidocaine prior to any incisions. Bilateral transversus abdominis plane block was performed under laparoscopic visualization to aid with pain control intra-and postoperatively. Patient was placed in reverse Trendelenburg and right side up on gallbladder was retracted superolaterally. Using electrocautery and blunt dissection I was able to identify the cystic artery and cystic duct. The duct was slightly dilated but tapered into the gallbladder. Full critical angle view was identified. Both structures were clipped twice proximally and once distally and transected. Since the duct was dilated, Endoloop was placed as well. The gallbladder was taken off the liver with electrocautery. Hemostasis was obtained. Gallbladder was placed in an Endo Catch bag and removed through the subxiphoid port site. There was complete hemostasis. Prior to transecting the cystic duct the cystotomy was created due to the slight enlargement of it. Cholangiogram catheter was inserted and cholangiography did not identify any filling defects. All ductal systems were identified bowel was identified. Due to the abnormality of the liver decision was made to perform liver wedge resection which was done with electrocautery and scissor with complete hemostasis right after. The specimen was sent to pathology for further evaluation. 12 mm made port site fascia was closed with Endo Close of an 0 Vicryl in a [id number] manner. The umbilical hernia was also closed in a figure-of- eight manner with Endo Close and 0 Vicryl. Ports and CO2 were removed under direct visualization. Next complete hemostasis. Wounds were thoroughly irrigated skin was closed with 4-0 Monocryl in subcuticular fashion. Dermabond was applied. Patient was extubated and transferred to recovery room in stable condition and all counts were correct and the end of the operation 2. Copies To: CC: ANTIONETTE LATHAM MD, SAMUEL MD Mar 09, 2017 18:17
[2017-03-09] MEDS ORDERED: HYDROCODONE/APAP (5/325) TAB PO PRN (18:30)
[2017-03-09] MEDS: ONDANSETRON 4 MG INJ IV PRN ×2 (18:37→19:38)
[2017-03-09] MEDS: morphine 2 MG INJ IV PRN ×2 (18:37→22:13)
[2017-03-09] MEDS ORDERED: morphine (1 MG/ML) 10ML SYRINGE IV PRN ×3 (19:30)
[2017-03-09] MEDS ORDERED: METOCLOPRAMIDE 10 MG INJ IV PRN (19:30)
[2017-03-09] MEDS ORDERED: FENTAnyl 50 MCG/ML VIAL IV PRN (19:30)
[2017-03-09] MEDS: FENTAnyl 50 MCG/ML VIAL IV PRN ×3 (19:38→20:26)
[2017-03-10] MEDS: HYDROCODONE/APAP (5/325) TAB PO PRN ×2 (04:54→10:26)
[2017-03-10] MEDS: LACTATED RINGER'S 1,000 ML IV SCH (05:55)
[2017-03-10 07:16] VITALS: BP 121/71; RESP 20
[2017-03-10 14:37] VITALS: BP 115/66; RESP 20
--- NOTE | 2017-03-10 17:01 | RADRPT ---
PROCEDURE: XR Abdomen. CLINICAL INDICATION: Intraoperative cholangiogram. Right upper quadrant pain. TECHNIQUE: Single AP view of the abdomen obtained in the operating room with portable equipment. COMPARISON: Right upper quadrant abdomen ultrasound dated 11/22/2016. FINDINGS: Surgical instruments are noted overlying the abdomen. There is gas in the abdomen related to the la paroscopy. Contrast is present in the common bile duct, intrahepatic bile ducts, and duodenum. There is no rachel ling defect. However, portions of the common bile duct are obscured by the surgical instruments. T he common bile duct and intrahepatic bile ducts are normal in diameter. The gallbladder is surgically absent with clips noted at this site. IMPRESSION: 1. Intraoperative cholangiogram appears grossly normal as indicated above. RPTAT: QQ .Ranjit Healy MD, MD Date Time Electronically viewed and signed by .Ranjit Healy MD, MD on 03/10/2017 17:00 .R/
[2017-03-10] MEDS ORDERED: HYDR-902 PO (21:51)
== END 2017-03-10 16:00 | disposition home or self-care (01) ==
LOC: SDS 13:47 → MS2 20:25 → SDS 22:47
PROVIDERS: ADMIT Surgery; ATTEND Surgery
DX: K80.10 Calculus of gallbladder with chronic cholecystitis without obstruction (principal); K76.0 Fatty (change of) liver, not elsewhere classified; K42.9 Umbilical hernia without obstruction or gangrene; K43.9 Ventral hernia without obstruction or gangrene; K40.90 Unilateral inguinal hernia, without obstruction or gangrene, not specified as recurrent
CPT/HCPCS: 47379; 47563; 49585; 74300; G0378; J0690; J2175; J2270; J2405; J2710; J3010; J7120; J7999; Q9967

== ENCOUNTER 2017-03-10 21:43 | Emergency (ER) | payer BC ==
[~2017-03-10] VITALS: Ht 170.2 cm; Wt 80.0 kg
[2017-03-10 21:49] VITALS: Ht 170.2 cm; Wt 80.0 kg
[2017-03-10] MEDS ORDERED: HYDR-902 PO (21:51)
--- NOTE | 2017-03-10 21:54 | ERD ---
ER Documentation Chief Complaint Date/Time DATE: 03/10/17 TIME: 21:52 Chief Complaint unable to fill medication prescription HPI History of abnormality says gallbladder removed yesterday is here for prescription for [place]. The pharmacy will not fill the prescription because if there is no date on it written by the surgeon who performed the procedure yesterday. Says he has some mild diffuse abdominal pain but nothing significant. He says he has no fever no vomiting or diarrhea ROS All systems reviewed and are negative except as per history of present illness. Medications Home Meds Active Scripts Hydrocodone/Acetaminophen ([place] 10-325 Tablet) 1 Each Tablet, 1 TAB PO Q6H Y for PAIN, #45 TAB Prov:BUNNY GIL DO 03/10/17 Discontinued Scripts Tramadol HCl (Tramadol HCl) 50 Mg Tablet, 50 MG PO Q6 Y for PAIN, #18 TAB Prov:ROSEMARY KRAUSE MD 11/22/16 Naproxen* (Naproxen*) 500 Mg Tablet, 500 MG PO BID, #20 TAB Prov:ROSA ISELA KAPLAN DO 09/15/16 Ondansetron (Zofran Odt) 4 Mg Tab.rapdis, 4 MG PO Q6, #20 Prov:ROSA ISELA KAPLAN DO 09/15/16 Oxycodone HCl/Acetaminophen (Percocet 5-325 mg Tablet) 1 Each Tablet, 1 EACH PO Q6, #24 TAB Prov:ROSA ISELA KAPLAN DO 09/15/16 Hydrocodone/Acetaminophen ([place] 10-325 Tablet) 1 Each Tablet, 1 TAB PO Q6H Y for PAIN, #15 TAB Prov:FERNANDO STANLEY MD 08/28/16 Hydrocodone/Acetaminophen ([place] 10-325 Tablet) 1 Each Tablet, 1 TAB PO Q6H Y for PAIN, #7 TAB Prov:FERNANDO STANLEY MD 08/28/16 Allergies Allergies: Coded Allergies: No Known Allergy (Unverified , 03/09/17) PMhx/Soc History of Surgery: No Anesthesia Reaction: No Hx Neurological Disorder: No Hx Respiratory Disorders: No Hx Cardiac Disorders: No Hx Psychiatric Problems: No Hx Miscellaneous Medical Probl: No Hx Alcohol Use: No Hx Substance Use: Yes (SOCIALLY) Hx Tobacco Use: No FmHx Family History: No coronary disease Physical Exam Vitals Vital Signs Date Time Temp Pulse Resp B/P Pulse Ox O2 Delivery O2 Flow Rate FiO2 03/10/17 21:49 98.7 73 18 137/75 98 Physical Exam Const: [Well-developed, well-nourished] Head: Atraumatic, normocephalic Eyes: Normal Conjunctiva, PERRLA, EOMI, normal sclera, no nystagmus ENT: Normal External Ears, Nose and Mouth, moist mucus membranes. Neck: Full range of motion. No meningismus, no lymphadenopathy. Resp: Clear to auscultation bilaterally, no wheezing, rhonchi, rales Cardio: Regular rate and rhythm, no murmurs, S1 S2 present Abd: Soft, mild upper abdominal tenderness, non distended. Normal bowel sounds, no guarding or rebound, no pulsitile abdominal masses or bruits Skin: No petechiae or rashes, no ecchymosis , no maculopapular rash Back: No midline or flank tenderness Ext: No cyanosis, or edema, FROM x 4, normal inspection, neurovascularly intact x 4 Neur: Awake and alert, STR 5/5 x 4, sensation intact x 4, no focal findings, cerebellum intact Psych: Normal Mood and Affect Departure Diagnosis: Primary Impression: Encounter for medication refill Condition: Stable Patient Instructions: Taking Medicine Safely Referrals: ANTIONETTE LATHAM MD (PCP) BUNNY GIL DO Mar 10, 2017 21:53
== END 2017-03-10 22:09 | disposition home or self-care (01) ==
LOC: E/R 21:43
DX: Z76.0 Encounter for issue of repeat prescription (principal)
CPT/HCPCS: 99281

== ENCOUNTER 2017-04-05 16:11 | Emergency (ER) | END 2017-04-05 18:30 | disposition home or self-care (01) | DX: R10.31 Right lower quadrant pain (principal) | CPT/HCPCS: 36415; 74177; 80053; 81003; 83690; 85025; 96374; 99285; J1885; Q9967 ==

== ENCOUNTER → 2017-05-18 | Outpatient (CLI) | payer BC ==
[~2017-05-18] MED LIST changes: -CEFAZOLIN 2 GM/50 ML (PMX) 50 ML IVPB ONE; -NAPR-688 PO; -ONDA4TAB11 PO; -OXYC-279 PO; -TRAM50TA2 PO; -metroNIDAZOLE 500 MG/NS (PMX) 100 ML IVPB ONE
[2017-05-18 08:38] LABS: BASOPHIL # 0.1 10^3/ul (0.0-0.1); BASOPHILS % 1.4 % (0.0-2.0); EOSINOPHILS # 0.3 10^3/ul (0.0-0.5); EOSINOPHILS % 4.8 % (0.0-7.0); HEMATOCRIT 44.4 % (42.0-52.0); HEMOGLOBIN 15.2 g/dl (14.0-18.0); LYMPHOCYTES # 2.2 10^3/ul (0.8-2.9); LYMPHOCYTES % 40.1 % (15.0-51.0); MEAN CORPUSCULAR HEMOGLOBIN 30.5 pg (29.0-33.0); MEAN CORPUSCULAR HGB CONC 34.2 g/dl (32.0-37.0); MEAN CORPUSCULAR VOLUME 89.2 fl (82.0-101.0); MEAN PLATELET VOLUME 11.3 fl (7.4-10.4); MONOCYTE # 0.4 10^3/ul (0.3-0.9); MONOCYTES % 7.5 % (0.0-11.0); NEUTROPHIL # 2.6 10^3/ul (1.6-7.5); PLATELET COUNT 192 10^3/UL (140-415); RED BLOOD COUNT 4.98 10^6/ul (4.70-6.10); RED CELL DISTRIBUTION WIDTH 12.1 % (11.5-14.5); WHITE BLOOD COUNT 5.6 10^3/ul (4.8-10.8)
[2017-05-18 08:52] LABS: IRON 137 ug/dl (35-150)
[2017-05-18 09:02] LABS: TOTAL IRON BINDING CAPACITY 368 ug/dl (241-421)
[2017-05-18 09:06] LABS: ALBUMIN 3.8 g/dl (3.3-4.9); ALBUMIN/GLOBULIN RATIO 1.08; BILIRUBIN,INDIRECT 0.7 mg/dl (0-1.1); BILIRUBIN,TOTAL 0.7 mg/dl (0.2-1.3); CALCIUM 8.9 mg/dl (8.4-10.2); CREATININE 0.85 mg/dl (0.61-1.24); POTASSIUM 3.9 mmol/L (3.5-5.1); TOTAL PROTEIN 7.3 g/dl (6.1-8.1)
== END | disposition home or self-care (01) ==
LOC: LAB 08:02
PROVIDERS: ATTEND Internal Medicine
DX: R73.03 Prediabetes (principal); E83.119 Hemochromatosis, unspecified
CPT/HCPCS: 80053; 83036; 83540; 84466; 85025

== ENCOUNTER → 2017-07-16 | Outpatient (CLI) | payer BC | END | disposition home or self-care (01) | LOC: ASU 07:27 | PROVIDERS: ATTEND Internal Medicine | DX: E83.110 Hereditary hemochromatosis (principal) ==

== ENCOUNTER → 2018-03-12 | Outpatient (CLI) | END | disposition home or self-care (01) ==

== ENCOUNTER 2019-02-17 09:51 | Emergency (ER) | payer BC ==
[~2019-02-17] VITALS: Ht 170.2 cm; Wt 87.2 kg
[~2019-02-17 09:51] MED LIST changes: +HYDR-3980 PO; -HYDR-902 PO
[2019-02-17 09:55] VITALS: BP 148/89; PULSE 95; RESP 18; Ht 170.2 cm; Wt 87.2 kg
[2019-02-17] MEDS ORDERED: AZITHROMYCIN 500 MG TAB PO ONE (11:00)
[2019-02-17] MEDS ORDERED: AZIT250T PO (11:03)
[2019-02-17] MEDS ORDERED: PROM5SYR2 PO (11:04)
--- NOTE | 2019-02-17 19:57 | ERD ---
ER Documentation Chief Complaint Chief Complaint cough x1mth HPI 38-year-old male presents with complaint of cough for the past month. Patient states that the cough is worse at night. Patient denies fever, night sweats, weight loss, fatigue, hemoptysis, wheezing, dyspnea, pleuritic chest pain, or orthopnea. Denies past medical history. Denies allergies. Denies medications. Denies surgeries. Denies alcohol, tobacco, or drug use. ROS All systems reviewed and are negative except as per history of present illness. Medications Home Meds Active Scripts Promethazine HCl/Codeine (Prometh-Codein 6.25-10 mg/5 ml) 5 Ml Syrup, 5 ML PO Q4, #4 OZ Prov:WU MOREJON 02/17/19 Azithromycin* (Zithromax*) 250 Mg Tablet, 250 MG PO .ZPACK DIRECTED, #6 TAB TAKE 500 MG (2 TABS) THE FIRST DAY THEN 250 MG (1 TAB) DAYS 2-5 Prov:WU MOREJON 02/17/19 Hydrocodone/Acetaminophen ([place] 10-325 Tablet) 1 Each Tablet, 1 TAB PO Q6H PRN for PAIN, #45 TAB Prov:BUNNY GIL DO 03/10/17 Allergies Allergies: Coded Allergies: No Known Allergy (Unverified , 03/09/17) PMhx/Soc Medical and Surgical Hx: pt denies Medical Hx History of Surgery: Yes (cholecystectomy) Anesthesia Reaction: No Hx Neurological Disorder: No Hx Respiratory Disorders: No Hx Cardiac Disorders: No Hx Psychiatric Problems: No Hx Miscellaneous Medical Probl: No Hx Alcohol Use: No Hx Substance Use: No Hx Tobacco Use: No Smoking Status: Never smoker FmHx Family History: No diabetes, No coronary disease, No other Physical Exam Vitals Vital Signs Date Temp Pulse Resp B/P (MAP) Pulse Ox O2 O2 Flow FiO2 Time Delivery Rate 02/17/19 98.4 95 18 148/89 98 09:55 (108) Physical Exam Const: No acute distress Head: Atraumatic Eyes: Normal Conjunctiva ENT: Normal External Ears, Nose and Mouth. Neck: Full range of motion. No meningismus. Resp: Clear to auscultation bilaterally Cardio: Regular rate and rhythm, no murmurs Abd: Soft, non tender, non distended. Normal bowel sounds Skin: No petechiae or rashes Back: No midline or flank tenderness Ext: No cyanosis, or edema Neur: Awake and alert Psych: Normal Mood and Affect Results 24 hrs Current Medications Medications Dose Sig/Sissy Start Time Status Last (Trade) Ordered Route PRN Stop Time Admin Dose Reason Admin 500 mg ONCE ONCE 02/17/19 DC 02/17/19 Azithromycin PO 11:00 02/17/19 11:06 (Zithromax) 11:01 Procedures/MDM DIAGNOSTIC IMAGING REPORT Patient: NANDINI TORRES : 1980 Age: 38 Sex: M MR #: [id number] DOS: 02/17/19 1006 Ordering MD: WU MOREJON Location: [facility] Room/Bed: PROCEDURE: XR Chest. CLINICAL INDICATION: Cough TECHNIQUE: PA and lateral chest x-ray. COMPARISON: None. FINDINGS: No focal opacification is seen. There is no pleural effusion or pneumothorax. The cardiomediastinal silhouette is within normal limits. The osseous structures are unremarkable. IMPRESSION: No acute cardiopulmonary process. RPTAT: RR Physician Sonia Date Time Electronically viewed and signed by Physician Sonia on 02/17/2019 10:31 rV/ CC: WU MOREJON [phone] MDM: Chest x-ray was ordered and results within normal limits. Explained to the patient that chest x-ray was normal on my suspicion for pneumonia was low however patient stated that he wanted antibiotics due to the length of the illness. I felt this is appropriate given the length of the illness to rule out bacterial etiology. Patient was prescribed a Z-Rob. I have low suspicion for tubercolosis, pleural effusion, acute heart failure, foreign body aspiration, pulmonary embolism, pneumothorax, or other emergent etiology. Patients O2 sat is normal and is not having difficulty breathing, therefore patient is fit for discharge. At this time, patient is stable for discharge and outpatient management. I have instructed the patient to follow-up with his/her primary care physician in 1-2 days. I have discussed with the patient the possibility of needing to see a specialist for further workup and imaging studies if symptoms persist. I have instructed the patient to promptly return to the ER for any new or worsening symptoms including but not limited to increased pain, fever, nausea, vomiting, weakness or LOC. The patient and/or family expressed understanding of and agreement with this plan. All questions were answered. Home care instructions were provided. DISCLAIMER: Inadvertent spelling and grammatical errors are likely due to EHR/dictation sof tware use and do not reflect on the overall quality of patient care. Also, please note that the electronic time recorded on this note does not necessarily reflect the actual time of the patient encounter. Departure Diagnosis: Primary Impression: Cough Condition: Stable Patient Instructions: Cough, Chronic, Uncertain Cause, (Adult) Referrals: ANTIONETTE LATHAM MD (PCP) Additional Instructions: FOLLOW UP WITH YOUR PRIMARY CARE PHYSICIAN TOMORROW.Return to this facility if you are not improving as expected. WU MOREJON Feb 17, 2019 19:57
== END 2019-02-17 11:07 | disposition home or self-care (01) ==
LOC: FTE 09:51
DX: R05 Cough (principal)
CPT/HCPCS: 71045

== ENCOUNTER → 2019-03-27 | Outpatient (CLI) | payer BC ==
[~2019-03-27] MED LIST changes: +AZIT250T PO; +PROM5SYR2 PO
== END | disposition home or self-care (01) ==
LOC: LAB 07:44
PROVIDERS: ATTEND Internal Medicine
DX: R51 Headache (principal); R73.9 Hyperglycemia, unspecified
CPT/HCPCS: 70450; 80053; 85025; 85651